=== PATIENT | male | born 1965 | race Caucasian/White ===

== ENCOUNTER 2016-09-19 14:40 | Emergency (ER) | payer MEDICAID, OTHER ==
[~2016-09-19] VITALS: Ht 167.6 cm; Wt 81.6 kg
[2016-09-19 14:45] VITALS: BP_SYST 143
--- NOTE | 2016-09-19 14:45 | NUR ---
Patient to ER bed 05 to gown for evaluation. Side rails up.
--- NOTE | 2016-09-19 14:49 | NUR ---
Note chas in ED - 09/19/16 at 1450 by [email or web address] Patient to bed 05 to chacha for evaluation. Side rails up.
--- NOTE | 2016-09-19 14:50 | NUR ---
Pt bib family c/o head and l hip pain s/p fall from trailer.Pt h/o L BKA.Pt unable to able w/o assist. hematoma noted to back of head.pt denies nausea or vomiting. Pt denies neck pain ir blurred vision.
[2016-09-19] MEDS ORDERED: KETOROLAC TROMETHAMINE 60 MG/2 ML VIAL IM ONE (15:00)
[2016-09-19] MEDS ORDERED: MORPHINE 2 MG/ML INJ. SYRINGE IVP ONE ×2 (15:00→16:15)
[2016-09-19] MEDS ORDERED: ONDANSETRON 4 MG ODT TAB PO ONE (15:00)
--- NOTE | 2016-09-19 15:30 | NUR ---
pt medicated for pain tolerated well. will monitor.
[2016-09-19] MEDS ORDERED: ONDANSETRON HCL 4 MG/2 ML VIAL IVP ONE (16:15)
[2016-09-19] MEDS ORDERED: KETOROLAC TROMETHAMINE 30 MG VIAL IVP ONE (16:15)
[2016-09-19 16:38] LABS: BASOPHILS % (AUTO) 0.3 % (0.0-2.0); EOSINOPHILS # (AUTO) 0.1 K/uL (0.0-0.4); HEMOGLOBIN 14.3 g/dL (14.0-18.0); MEAN CORPUSCULAR HEMOGLOBIN 31 pg (27-31); MEAN CORPUSCULAR HGB CONC 34 % (32-36); MEAN CORPUSCULAR VOLUME 91 fL (79.0-98.0); NEUTROPHILS # (AUTO) 11.4 K/uL (1.8-7.7); WHITE BLOOD COUNT (AUTO) 13.6 K/uL (4.8-10.8)
[2016-09-19 16:45] LABS: EOSINOPHILS % (AUTO) 0.7 % (0.0-4.0); HEMATOCRIT 42.5 % (36-54); LYMPHOCYTES # (AUTO) 1.4 K/uL (1.0-5.5); LYMPHOCYTES % (AUTO) 10.2 % (20.5-51.5); MONOCYTES # (AUTO) 0.7 K/uL (0.0-1.0); MONOCYTES % (AUTO) 4.9 % (1.7-9.3); NEUTROPHILS % (AUTO) 83.9 % (40.0-70.0); PLATELET COUNT (AUTO) 165 K/uL (130-430); PROTHROMBIN TIME 11.1 SECS (9.5-12.5); RED BLOOD CELL COUNT(AUTO) 4.69 MIL/uL (4.2-6.2); RED CELL DISTRIBUTION WIDTH 12.1 % (9.0-15.0)
[2016-09-19 16:49] LABS: ALBUMIN 3.9 g/dL (3.4-4.8); CREATININE 0.74 mg/dL (0.55-1.30); POTASSIUM 3.9 mmol/L (3.5-5.1); TOTAL BILIRUBIN 0.6 mg/dL (0.0-1.0); TOTAL PROTEIN, SERUM 7.1 g/dL (6.4-8.3)
--- NOTE | 2016-09-19 17:30 | NUR ---
pt reports pain tolerable. Contuining to find an admitting MD.
[2016-09-19 18:30] VITALS: BP_SYST 140
--- NOTE | 2016-09-19 18:30 | NUR ---
Patient given written and verbal discharge instructions and verbalizes understanding. ER MD discussed with patient the results and treatment provided. Given copies of tests performed in ER. Patient in stable condition. ID arm band removed. IV catheter removed intact and dressing applied, no active bleeding. Rx of motrin,norco given. Patient educated on pain management and to follow up with PMD. Pain Scale 2. Opportunity for questions provided and answered.
== END 2016-09-19 18:30 | disposition home or self-care (01) ==
LOC: SED 14:40
DX: S32.402A Unspecified fracture of left acetabulum, initial encounter for closed fracture (principal); R51 Headache; K21.9 Gastro-esophageal reflux disease without esophagitis; I10 Essential (primary) hypertension; E78.5 Hyperlipidemia, unspecified; V98.8XXA Other specified transport accidents, initial encounter; Y93.89 Activity, other specified; Y99.8 Other external cause status; Y92.89 Other specified places as the place of occurrence of the external cause
CPT/HCPCS: 36415; 70450; 72192; 80053; 85025; 85610; 85730; 93005; 96372; 96374; 99285; J1885; J2270; Q0162

== ENCOUNTER 2017-09-10 21:54 | Emergency (ER) | payer MEDICAID ==
[~2017-09-10] VITALS: Ht 167.6 cm; Wt 82.6 kg
[2017-09-10 21:55] VITALS: BP_SYST 138
[2017-09-10 23:36] VITALS: BP_SYST 131
== END 2017-09-10 23:36 | disposition home or self-care (01) ==
LOC: SED 21:54
DX: G62.9 Polyneuropathy, unspecified (principal); I10 Essential (primary) hypertension; E78.5 Hyperlipidemia, unspecified; K21.9 Gastro-esophageal reflux disease without esophagitis; Z89.432 Acquired absence of left foot
CPT/HCPCS: 99283

== ENCOUNTER 2018-01-11 23:53 | Inpatient (IN) | payer MEDICAID ==
[~2018-01-11] VITALS: Ht 167.6 cm; Wt 83.0 kg
[2018-01-11 23:53] VITALS: BP_SYST 144
[2018-01-11] MEDS ORDERED: NACL 0.9% 1,000 ML IV ONE (23:57)
[2018-01-12] VITALS (19 sets, daily range): BP systolic 86–134
[2018-01-12] MEDS ORDERED: ASPIRIN 81 MG TAB.CHEW PO ONE
[2018-01-12] MEDS ORDERED: CLOPIDOGREL BISULFATE 75 MG TABLET PO ONE
[2018-01-12] MEDS ORDERED: DILTIAZEM HCL 30 MG TABLET PO ONE (00:15)
[2018-01-12 00:19] LABS: BASOPHILS # (AUTO) 0.1 K/uL (0.0-0.2); BASOPHILS % (AUTO) 1.2 % (0.0-2.0); EOSINOPHILS # (AUTO) 0.3 K/uL (0.0-0.4); EOSINOPHILS % (AUTO) 4.3 % (0.0-4.0); HEMATOCRIT 44.3 % (36-54); HEMOGLOBIN 15.2 g/dL (14.0-18.0); LYMPHOCYTES % (AUTO) 29.1 % (20.5-51.5); MEAN CORPUSCULAR HEMOGLOBIN 32 pg (27-31); MEAN CORPUSCULAR HGB CONC 34 % (32-36); MEAN CORPUSCULAR VOLUME 94 fL (79.0-98.0); MONOCYTES # (AUTO) 0.4 K/uL (0.0-1.0); MONOCYTES % (AUTO) 6.5 % (1.7-9.3); PLATELET COUNT (AUTO) 144 K/uL (130-430); WHITE BLOOD COUNT (AUTO) 6.8 K/uL (4.8-10.8)
[2018-01-12 00:28] LABS: ANION GAP 7 (5-15); CALCIUM 9.1 mg/dL (8.4-11.0); CHLORIDE 107 mmol/L (98-107); CREATININE 0.74 mg/dL (0.55-1.30); GLUCOSE 144 mg/dL (70-99); POTASSIUM 3.2 mmol/L (3.5-5.1); SODIUM SERUM 140 mmol/L (136-145); UREA NITROGEN, BLOOD 23 mg/dL (8-21)
[2018-01-12 00:31] LABS: GFR AFRICAN AMERICAN 142 mL/min (>90)
[2018-01-12 00:34] LABS: ALANINE AMINOTRANSFERASE 30 U/L (12-78); ALBUMIN 3.9 g/dL (3.4-4.8); AMYLASE 42 U/L (0-100); ASPARTATE AMINOTRANSFERASE 22 U/L (10-37); LIPASE 156 U/L (73-393); TOTAL BILIRUBIN 0.7 mg/dL (0.0-1.0)
[2018-01-12 00:38] LABS: ALCOHOL, BLOOD < 3 mg/dL (<10)
[2018-01-12 00:39] LABS: PROTHROMBIN TIME 10.5 SECS (9.5-12.5)
[2018-01-12 00:41] LABS: NEUTROPHILS % (AUTO) 58.9 % (40.0-70.0)
[2018-01-12] MEDS ORDERED: DILTIAZEM HCL 125 MG in D5W 100 ML IV ONE (00:45)
[2018-01-12] MEDS ORDERED: DILTIAZEM HCL 125 MG/25 ML VIAL IV ONE (00:59)
[2018-01-12] MEDS ORDERED: HYDROcodone/ACETAMIN 10-325 MG TAB PO PRN (02:00)
[2018-01-12] MEDS ORDERED: ASPI-1153 PO (02:22)
[2018-01-12] MEDS ORDERED: LISI-209 PO (02:22)
[2018-01-12 02:35] LABS: BILIRUBIN,URINE NEGATIVE (NEGATIVE); BLOOD, URINE NEGATIVE (NEGATIVE); CLARITY/URINE CLEAR (CLEAR); COLOR,URINE YELLOW (YELLOW); GLUCOSE,URINE NEGATIVE (NEGATIVE); KETONES,URINE 1+ (NEGATIVE); LEUKOCYTE ESTERASE ,URINE NEGATIVE (NEGATIVE); NITRITE, URINE NEGATIVE (NEGATIVE); PH,URINE 6.5 (5.0-8.0); PROTEIN URINE NEGATIVE (NEGATIVE); UROBILINOGEN,URINE 0.2 (0.2-1.0)
[2018-01-12 02:46] LABS: BARBITURATE, URINE NEGATIVE (NEG <=200); BENZODIAZEPINE, URINE NEGATIVE (NEG <=150); CANNABINOID, URINE NEGATIVE (NEG <=50); COCAINE, URINE NEGATIVE (NEG <=150); METHAMPHETAMINES SCREEN,URINE NEGATIVE (NEG <=500); OPIATE, URINE NEGATIVE (NEG <=100); PHENCYCLIDINE SCREEN,URINE NEGATIVE (NEG <=25); UR TRICYCLIC ANTIDEPRESSANTS NEGATIVE (NEG <=300); URINE AMPHETAMINE NEGATIVE (NEG <=500); URINE METHADONE NEGATIVE (NEG <=200); URINE OXYCODONE SCREEN NEGATIVE (NEG <=100); URINE PROPOXYPHENE SCREEN NEGATIVE (NEG <=300)
[2018-01-12] MEDS ORDERED: HYDROcodone/ACETAMIN 7.5-325 MG TAB PO PRN (05:45)
[2018-01-12] MEDS ORDERED: POTASSIUM CHLORIDE 20 MEQ TAB.PRT.SR PO PRN (05:45)
[2018-01-12] MEDS ORDERED: MAGNESIUM SULFATE 50 ML IV PRN (05:45)
[2018-01-12] MEDS ORDERED: ONDANSETRON HCL 4 MG/2 ML VIAL IVP PRN ×2 (05:45)
[2018-01-12] MEDS ORDERED: MORPHINE 2 MG/ML INJ. SYRINGE IVP PRN ×2 (05:45)
[2018-01-12] MEDS ORDERED: DOCUSATE SODIUM 100 MG CAPSULE PO PRN (05:45)
[2018-01-12] MEDS ORDERED: ACETAMINOPHEN 325 MG TABLET PO PRN (05:45)
[2018-01-12] MEDS ORDERED: ZOLPIDEM TARTRATE 5 MG TABLET PO PRN (05:45)
[2018-01-12] MEDS: NACL 0.9% 1,000 ML IV SCH ×2 (06:40→21:45)
[2018-01-12 06:50] LABS: PHOSPHORUS 4.8 mg/dL (2.7-4.5); THYROID STIMULATING HORMONE 2.92 uIu/mL (0.36-3.74)
[2018-01-12] MEDS ORDERED: AMIODARONE HCL 200 MG TABLET PO ONE (09:00)
[2018-01-12] MEDS ORDERED: LISINOPRIL 5 MG TABLET PO SCH (09:00)
[2018-01-12] MEDS ORDERED: HEPARIN SODIUM,PORCINE 5000 UNITS/ML VIAL SUBCUT SCH (09:00)
[2018-01-12] MEDS: ASPIRIN 81 MG TABLET(ECOTRIN) PO SCH (09:03)
[2018-01-12] MEDS: DOCUSATE SODIUM 100 MG CAPSULE PO SCH ×2 (09:03→20:26)
[2018-01-12] MEDS ORDERED: APIXABAN 2.5 MG TABLET PO ONE (09:15)
[2018-01-12] MEDS: AMIODARONE HCL 200 MG TABLET PO SCH ×2 (16:09→21:45)
[2018-01-12] MEDS: APIXABAN 2.5 MG TABLET PO SCH (20:28)
[2018-01-13] VITALS (13 sets, daily range): BP systolic 90–125
[2018-01-13 05:36] LABS: CHOLESTEROL 149 mg/dL (<200); HDL CHOLESTEROL 33 mg/dL (>45); LDL CHOLESTEROL 100 mg/dL (<100); TRIGLYCERIDES 138 mg/dL (30-150)
[2018-01-13] MEDS: AMIODARONE HCL 200 MG TABLET PO SCH (06:40)
[2018-01-13] MEDS ORDERED: AMIODARONE HCL 200 MG TABLET ONE (06:44)
[2018-01-13] MEDS: DOCUSATE SODIUM 100 MG CAPSULE PO SCH (08:11)
[2018-01-13] MEDS: ASPIRIN 81 MG TABLET(ECOTRIN) PO SCH (08:11)
[2018-01-13] MEDS: APIXABAN 2.5 MG TABLET PO SCH (08:23)
[2018-01-13 08:30] LABS: HEMOGLOBIN A1C 5.5 % (4.8-5.6)
[2018-01-13] MEDS ORDERED: AMIODARONE HCL 200 MG TABLET PO SCH (09:00)
[2018-01-13 09:12] LABS: T4 (THYROXINE) 6.9 ug/dL (4.5-12.0)
[2018-01-13] MEDS ORDERED: APIX2.5T PO (09:29)
[2018-01-13] MEDS ORDERED: AMIO200T2 PO (09:29)
== END 2018-01-13 12:15 | disposition home or self-care (01) | DRG 201 ==
LOC: SED 23:53 → SIC 01-12 01:49
PROVIDERS: ADMIT Family Medicine; ATTEND Family Medicine
DX: I48.0 Paroxysmal atrial fibrillation (principal); I24.9 Acute ischemic heart disease, unspecified; I10 Essential (primary) hypertension; K21.9 Gastro-esophageal reflux disease without esophagitis; E78.5 Hyperlipidemia, unspecified; E87.6 Hypokalemia; K59.00 Constipation, unspecified; Z89.512 Acquired absence of left leg below knee; Z87.01 Personal history of pneumonia (recurrent)
CPT/HCPCS: 36415; 71045; 80053; 80061; 80307; 81003; 82150-TC; 82550-TC; 83036; 83690-TC; 83735-TC; 83880; 84100-TC; 84436; 84439; 84443-TC; 84479; 84484; 85025; 85379; 85610-TC; 85730-TC; 87081; 93005; 93306; 99285; G0482; J1644; J3490; J7030

== ENCOUNTER 2018-07-30 11:52 | Emergency (ER) | payer MEDICAID ==
[~2018-07-30] VITALS: Ht 167.6 cm; Wt 85.7 kg
[~2018-07-30 11:52] MED LIST: AMIO200T4 PO; APIX2.5T PO; ASPI-1153 PO; LISI-209 PO
[2018-07-30 12:10] VITALS: BP_SYST 126
[2018-07-30 12:57] LABS: CALCIUM 8.7 mg/dL (8.4-11.0); CREATININE 0.81 mg/dL (0.55-1.30); POTASSIUM 4.5 mmol/L (3.5-5.1)
[2018-07-30 13:04] LABS: PROTHROMBIN TIME 10.4 SECS (9.5-12.5)
[2018-07-30 13:06] LABS: HEMATOCRIT 45.6 % (36-54); HEMOGLOBIN 15.1 g/dL (14.0-18.0); LYMPHOCYTES % (AUTO) 27.3 % (20.5-51.5); MEAN CORPUSCULAR HEMOGLOBIN 32 pg (27-31); MEAN CORPUSCULAR HGB CONC 33 % (32-36); MEAN CORPUSCULAR VOLUME 97 fL (79.0-98.0); NEUTROPHILS % (AUTO) 62.1 % (40.0-70.0); PLATELET COUNT (AUTO) 126 K/uL (130-430); RED BLOOD CELL COUNT(AUTO) 4.72 MIL/uL (4.2-6.2); RED CELL DISTRIBUTION WIDTH 13.4 % (9.0-15.0); WHITE BLOOD COUNT (AUTO) 5.1 K/uL (4.8-10.8)
[2018-07-30 13:07] LABS: ALBUMIN 3.7 g/dL (3.4-4.8); BASOPHILS % (AUTO) 0.8 % (0.0-2.0); EOSINOPHILS # (AUTO) 0.2 K/uL (0.0-0.4); EOSINOPHILS % (AUTO) 3.5 % (0.0-4.0); LYMPHOCYTES # (AUTO) 1.4 K/uL (1.0-5.5); MONOCYTES # (AUTO) 0.3 K/uL (0.0-1.0); MONOCYTES % (AUTO) 6.3 % (1.7-9.3); NEUTROPHILS # (AUTO) 3.2 K/uL (1.8-7.7); TOTAL BILIRUBIN 0.8 mg/dL (0.0-1.0)
[2018-07-30 16:42] VITALS: BP_SYST 133
== END 2018-07-30 16:42 | disposition home or self-care (01) ==
LOC: SED 11:52
DX: R51 Headache (principal); R06.02 Shortness of breath; K21.9 Gastro-esophageal reflux disease without esophagitis; I10 Essential (primary) hypertension; E78.5 Hyperlipidemia, unspecified; Z79.82 Long term (current) use of aspirin; Z79.899 Other long term (current) drug therapy
CPT/HCPCS: 36415; 70450-TC; 71045; 80053; 83880; 84484; 85025; 85610-TC; 85730-TC; 93005; 99284